=== PATIENT | female | born 1975 | race Caucasian/White ===

== ENCOUNTER 2016-11-05 08:26 | Emergency (ER) | payer SELFPAY ==
[2016-11-05] MEDS ORDERED: ONDANSETRON HCL 4 MG/2 ML VIAL ONE ×2 (09:01→09:33)
[2016-11-05 09:16] LABS: BASOPHILS 0.1 % (0.0-2.0); EOSINOPHILS 0.2 % (0.0-6.0); HEMATOCRIT 46.4 % (36.0-48.0); HEMOGLOBIN 15.9 g/dL (12.0-16.0); LYMPHOCYTES 4.4 % (20.0-40.0); LYMPHOCYTES# 0.5 X 10^3uL (0.8-3.8); MEAN CELL VOLUME 88.6 fL (80.0-100.0); MEAN CORPUS. HGB CONCENTRATION 34.2 g/dL (32.0-36.0); MEAN CORPUSCULAR HEMOGLOBIN 30.3 pg (29.0-35.0); MEAN PLATELET VOLUME 8.4 fL (7.4-10.4); MONOCYTES 3.5 % (2.0-10.0); MONOCYTES# 0.4 X 10^3uL (0.2-1.0); NEUTROPHILS# 10.5 X 10^3uL (2.6-6.7); PLATELET COUNT 229 X 10^3uL (130-440); RED BLOOD COUNT 5.24 X 10^6uL (4.20-6.10); RED CELL DISTRIBUTION WIDTH 11.9 % (11.5-14.5); WHITE BLOOD COUNT 11.4 X 10^3uL (3.9-10.7)
[2016-11-05 09:25] LABS: NEUTROPHILS 91.8 % (54.0-75.0)
[2016-11-05 09:26] LABS: ALBUMIN 4.7 g/dL (3.5-5.0); ALKALINE PHOSPHATASE 68 U/L (38-126); ALT 39 U/L (9-52); AST 22 U/L (14-36); BILIRUBIN, DIRECT 0.1 mg/dL (0.0-0.4); BILIRUBIN, TOTAL 0.9 mg/dL (0.2-1.3); BLOOD UREA NITROGEN 21 mg/dL (7-17); CALCIUM 9.1 mg/dL (8.4-10.2); CHLORIDE 104 mmol/L (98-107); CREATININE 0.7 mg/dL (0.5-1.0); EST GLOMERULAR FILTRATION RATE > 60 mL/min; GLUCOSE 108 mg/dL (70-100); LIPASE 125 U/L (23-300); POTASSIUM 4.1 mmol/L (3.5-5.1); SODIUM 140 mmol/L (137-145); TOTAL PROTEIN 8.3 g/dL (6.3-8.2)
[2016-11-05] MEDS ORDERED: KETOROLAC TROMETHAMINE 30 MG/ML VIAL ONE (09:33)
[2016-11-05] MEDS ORDERED: CIPROFLOXACIN/D5W 400 MG IV ONE (11:21)
[2016-11-05] MEDS ORDERED: NORMAL SALINE 250 ML IV ONE (11:21)
[2016-11-05] MEDS ORDERED: DIPHENHYDRAMINE 50 MG/ML VIAL ONE (11:22)
--- NOTE | 2016-11-05 13:35 | ER PHYSICIAN DOCUMENTATION ---
Physician Documentation [facility] Name:Marquita Wilhelm Age:41 yrs Sex:Female :1975 Arrival Date:11/05/2016 Time:08:26 Bed4 Private MD: Cortez Goldstein Disposition: 11/05/16 11:05 Discharged to Home/Self Care. Impression: Pyelonephritis. - Condition is Fair. - Discharge Instructions: PYELONEPHRITIS, Female (Adult). - Prescriptions for Cipro 500 mg Oral Tablet - take 1 tablet by ORAL route every 12 hours for 7 days; 14 tablet. Zofran 4 mg Oral Tablet - take 1 tablet by ORAL route every 12 hours .; 20 tablet. - Medical Reconciliation form form. - Follow up: Emergency Department; When: As needed; Reason: Worsening of condition. - Problem is new. - Symptoms have improved. HPI: 11/05 11:01 This 41 yrs old Female presents to ER via Private Vehicle with complaints of sc Nausea/Vomiting. 11:01 The patient presents to the emergency department with nausea, with vomiting. Onset: The sc symptom(s)/episode began/occurred yesterday. Possible causes: unknown. Associated signs and symptoms: Pertinent positives: anorexia, nausea, vomiting. The patient has not experienced similar symptoms in the past. Historical: - Allergies: Codeine; IODINEIODINE CONTAINING; - Home Meds: 1. None - PMHx: NONE; - PSHx: HYSTERECTOMY; CHOLECYSECTOMY; APPENDECTOMY; ; ovarian cyst rupture repair; - Tetanus: < 10 years. - Ebola Screening: : Patient negative for fever greater than or equal to 101.5 degrees Fahrenheit, and additional compatible Ebola Virus Disease symptoms. Patient denies exposure to infectious person. Patient denies travel to an Ebola-affected area in the 21 days before illness onset. No symptoms or risks identified at this time. . - Immunization history: Flu Vaccine >1 year. - Social history: Smoking status: Patient states was never smoker of tobacco. ROS: 11:01 Constitutional: Negative for fever, chills, and weight loss. sc Eyes: Negative for injury, pain, redness, and discharge. ENT: Negative for injury, pain, and discharge. Neck: Negative for injury, pain, and swelling. Cardiovascular: Negative for chest pain, palpitations, and edema. Respiratory: Negative for shortness of breath, cough, wheezing, and pleuritic chest pain. 11:01 Skin: Negative for injury, rash, and discoloration. sc 11:01 Abdomen/GI: Positive for nausea, vomiting, abdominal cramps, Negative for diarrhea, constipation, dysphagia, hematemesis. 11:01 Neuro: Positive for headache. Exam: Constitutional: This is a well developed, well nourished patient who is awake, alert, and in no acute distress. Head/Face: Normocephalic, atraumatic. Eyes: Pupils equal round and reactive to light, extra-ocular motions intact. Lids and lashes normal. Conjunctiva and sclera are non-icteric and not injected. Cornea within normal limits. Periorbital areas with no swelling, redness, or edema. Neck: Trachea midline, no thyromegaly or masses palpated, and no cervical lymphadenopathy. Supple, full range of motion without nuchal rigidity, or vertebral point tenderness. No meningismus. Cardiovascular: Regular rate and rhythm with a normal S1 and S2. No gallops, murmurs, or rubs. Normal PMI, no JVD. No pulse deficits. Respiratory: Lungs have equal breath sounds bilaterally, clear to auscultation and percussion. No rales, rhonchi or wheezes noted. No increased work of breathing, no retractions or nasal flaring. Abdomen/GI: Soft, non-tender, with normal bowel sounds. No distension or tympany. No guarding or rebound. No evidence of tenderness throughout. MS/ Extremity: Pulses equal, no cyanosis. Neurovascular intact. Full, normal range of motion, negative Homans's, calves equal bilaterally. 11:02 Neuro: Awake and alert, GCS 15, oriented to person, place, time, and situation. sc Cranial nerves II-XII grossly intact. Motor strength 5/5 in all extremities. Sensory grossly intact. Cerebellar exam normal. Normal gait. 11:02 Constitutional: The patient appears alert, awake, comfortable. 11:02 ENT: Mouth: Oral mucosa: dry. 11:02 Cardiovascular: Rate: normal, Rhythm: regular. 11:02 Abdomen/GI: Inspection: abdomen appears normal. 11:02 Skin: Turgor: is poor, tenting is noted. Vital Signs: 08:35 BP 131 / 73; Pulse 100; Resp 16; Temp 98.3; Pulse Ox 92% ; Weight 63.5 kg; Height 5 ft. jt 6 in. (167.64 cm); Pain 6/10; 11:04 BP 105 / 79 (auto/); tg 11:30 BP 117 / 67 (auto/); Pulse 89; Resp 14; Pulse Ox 97% on R/A; tg 13:33 BP 109 / 62; Pulse 90; Resp 16; Pulse Ox 93% on R/A; tg 08:35 Body Mass Index 22.60 (63.50 kg, 167.64 cm) jt MDM: 09:03 Patient medically screened. vt 11:03 Differential diagnosis: viral gastroenteritis, gastroenteritis, Pyelonephritis. Data vt reviewed: vital signs, nurses notes, lab test result(s), and as a result, I will continue to observe the patient, administer antibiotics administer IV fluids. Counseling: I had a detailed discussion with the patient and/or guardian regarding: the historical points, exam findings, and any diagnostic results supporting the discharge/admit diagnosis, lab results, the need for outpatient follow up, for a recheck. Medication response: The patient's symptoms have improved. 11/05 09:26 Order name: CBC AUTO DIF, MDIF/RMOR IF IND; Complete Time: 10:04 [facility] 11/05 10:04 Interpretation: Normal Except: WHITE BLOOD COUNT 11.4; NEUTROPHILS 91.8. vt 11/05 09:27 Order name: BASIC METABOLIC PANEL; Complete Time: 10:04 [facility] 11/05 10:04 Interpretation: Normal. vt 11/05 09:27 Order name: HEPATIC PANEL; Complete Time: 10:04 [facility] 11/05 10:04 Interpretation: Normal. vt 11/05 09:27 Order name: LIPASE; Complete Time: 10:04 [facility] 11/05 10:04 Interpretation: Normal. vt 11/06 09:15 Order name: URINE CULTURE [facility] 11/07 11:17 Order name: NEGATIVE SENSITIVITY PANEL [facility] 11/05 09:05 Order name: Urine Dip; Complete Time: 10:17 vt Dispensed Medications: 08:50 Drug: NS 0.9% 1000 ml; Route: IV; Rate: bolus; Site: left antecubital; tg 09:33 Follow up: IV Status: Completed infusion; IV Intake: 1000ml tg 08:58 Drug: Zofran 4 mg; Route: IVP; Infused Over: 2 mins; Site: left antecubital; tg 09:34 Follow up: Response: No adverse reaction; No change in condition tg 09:33 Drug: Zofran 4 mg; Route: IVP; Infused Over: 2 mins; Site: left antecubital; tg 09:55 Follow up: Response: Nausea is decreased tg 09:34 Drug: NS 0.9% 1000 ml; Route: IV; Rate: bolus; Site: left antecubital; tg 10:16 Follow up: IV Status: Completed infusion; IV Intake: 1000ml tg 09:34 Drug: Toradol 30 mg; Route: IVP; Site: left antecubital; tg 09:55 Follow up: Response: Pain is decreased tg 11:00 Drug: Benadryl 25 mg; Route: IVP; Site: left antecubital; tg 12:02 Follow up: Response: No adverse reaction; Nausea is decreased tg 11:06 Drug: NS 0.9% 1000 ml; Route: IV; Rate: bolus; Site: left antecubital; Delivery: tg [place] Tubing; 13:33 Follow up: Response: No adverse reaction; IV Status: Completed infusion; IV Intake: tg 1000ml 11:25 Drug: NS 0.9% 250 ml, Compazine 10 mg; Route: IVPB; Rate: 750 ml/hr; Infused Over: 20 tg mins; Site: left antecubital; Delivery: Pump; 12:01 Follow up: IV Status: Completed infusion; IV Intake: 250ml tg 12:02 Drug: NS 0.9% 200 ml, Cipro 400 mg; Route: IVPB; Site: left antecubital; Delivery: Pump;tg 13:33 Follow up: IV Status: Completed infusion; IV Intake: 200ml tg Point of Care Testing: Urine Dip: 10:17 pH: 6; ; Specific [place]: 1.025; Ketones: Moderate; Glucose: Negative; Protein: Trace; tg Leukocytes: Negative; Nitrite: Positive (+) ; Blood: Non Hemolyzed Trace; Bilirubin: Negative ; Urobilinogen: Normal Signatures: Hugo Street RN RN tg Cortez Brooks MD MD vt
--- NOTE | 2016-11-05 13:35 | ER NURSING DOCUMENTATION ---
Nurse's Notes [facility] Name:Marquita Wilhelm Age:41 yrs Sex:Female :1975 Arrival Date:11/05/2016 Time:08:26 Bed4 Private MD: Diagnosis:Pyelonephritis Presentation: 11/05 08:28 Acuity: ART 3 tg 08:42 Notified ED Physician of patient's arrival and CC Dr. Brooks notified. tg 08:49 Presenting complaint: Patient states: N/V with ABD cramping. vomit 10x since last tg night. No diarrhea. Transition of care: patient was not received from another setting of care. 08:49 Method Of Arrival: Private Vehicle tg 09:15 Care prior to arrival: Medication(s) given: pepto. tg Triage Assessment: 09:13 General: Appears uncomfortable, Behavior is cooperative, pleasant. Pain: Complains of tg pain in headache, ABD cramping. Neuro: Level of Consciousness is awake, alert. Cardiovascular: Capillary refill < 3 seconds. Respiratory: Airway is patent Respiratory effort is even, unlabored. GI: Reports cramping, nausea, vomiting, Denies diarrhea. Derm: Skin is pink, warm & dry. Historical: - Allergies: Codeine; IODINEIODINE CONTAINING; - Home Meds: 1. None - PMHx: NONE; - PSHx: HYSTERECTOMY; CHOLECYSECTOMY; APPENDECTOMY; ; ovarian cyst rupture repair; - Tetanus: < 10 years. - Ebola Screening: : Patient negative for fever greater than or equal to 101.5 degrees Fahrenheit, and additional compatible Ebola Virus Disease symptoms. Patient denies exposure to infectious person. Patient denies travel to an Ebola-affected area in the 21 days before illness onset. No symptoms or risks identified at this time. . - Immunization history: Flu Vaccine >1 year. - Social history: Smoking status: Patient states was never smoker of tobacco. Screenin:53 Infectious Disease Risk Unable to Obtain. Abuse screen: Denies threats or abuse. Denies tg injuries from another. Nutritional screening: No deficits noted. Assessment: 13:32 Reassessment: Patient denies pain at this time. Patient states feeling better. Patient tg states symptoms have improved. Patient appears in no apparent distress at this time. See Triage Assessment done by same RN. Vital Signs: 08:35 BP 131 / 73; Pulse 100; Resp 16; Temp 98.3; Pulse Ox 92% ; Weight 63.5 kg; Height 5 ft. jt 6 in. (167.64 cm); Pain 6/10; 11:04 BP 105 / 79 (auto/); tg 11:30 BP 117 / 67 (auto/); Pulse 89; Resp 14; Pulse Ox 97% on R/A; tg 13:33 BP 109 / 62; Pulse 90; Resp 16; Pulse Ox 93% on R/A; tg 08:35 Body Mass Index 22.60 (63.50 kg, 167.64 cm) jt ED Course: 08:28 Patient arrived in ED. tg 08:29 Triage completed. tg 08:41 Cortez Brooks MD is Attending Physician. sc 08:53 Valuables Remains with patient. tg 09:15 Arm band placed on Bed in low position Call Light in Reach Gowned HOB Elevated Side tg rails up x1. Family accompanied patient. 09:[address] RN is Primary Nurse. tg Administered Medications: 08:50 Drug: NS 0.9% 1000 ml; Route: IV; Rate: bolus; Site: left antecubital; tg 09:33 Follow up: IV Status: Completed infusion; IV Intake: 1000ml tg 08:58 Drug: Zofran 4 mg; Route: IVP; Infused Over: 2 mins; Site: left antecubital; tg 09:34 Follow up: Response: No adverse reaction; No change in condition tg 09:33 Drug: Zofran 4 mg; Route: IVP; Infused Over: 2 mins; Site: left antecubital; tg 09:55 Follow up: Response: Nausea is decreased tg 09:34 Drug: NS 0.9% 1000 ml; Route: IV; Rate: bolus; Site: left antecubital; tg 10:16 Follow up: IV Status: Completed infusion; IV Intake: 1000ml tg 09:34 Drug: Toradol 30 mg; Route: IVP; Site: left antecubital; tg 09:55 Follow up: Response: Pain is decreased tg 11:00 Drug: Benadryl 25 mg; Route: IVP; Site: left antecubital; tg 12:02 Follow up: Response: No adverse reaction; Nausea is decreased tg 11:06 Drug: NS 0.9% 1000 ml; Route: IV; Rate: bolus; Site: left antecubital; Delivery: tg [place] Tubing; 13:33 Follow up: Response: No adverse reaction; IV Status: Completed infusion; IV Intake: tg 1000ml 11:25 Drug: NS 0.9% 250 ml, Compazine 10 mg; Route: IVPB; Rate: 750 ml/hr; Infused Over: 20 tg mins; Site: left antecubital; Delivery: Pump; 12:01 Follow up: IV Status: Completed infusion; IV Intake: 250ml tg 12:02 Drug: NS 0.9% 200 ml, Cipro 400 mg; Route: IVPB; Site: left antecubital; Delivery: Pump;tg 13:33 Follow up: IV Status: Completed infusion; IV Intake: 200ml tg Point of Care Testing: Urine Dip: 10:17 pH: 6; ; Specific [place]: 1.025; Ketones: Moderate; Glucose: Negative; Protein: Trace; tg Leukocytes: Negative; Nitrite: Positive (+) ; Blood: Non Hemolyzed Trace; Bilirubin: Negative ; Urobilinogen: Normal Intake: 09:33 IV: 1000ml; Total: 1000ml. tg 10:16 IV: 1000ml; Total: 2000ml. tg 12:01 IV: 250ml; Total: 2250ml. tg 13:33 IV: 1000ml; Total: 3250ml. tg 13:33 IV: 200ml; Total: 3450ml. Outcome: 11:05 Discharge ordered by . mo 13:32 Discharged to home ambulatory, with family. 13:32 Condition: stable 13:32 Discharge Assessment: Patient awake, alert and oriented x 3. No cognitive and/or functional deficits noted. Patient verbalized understanding of disposition instructions. 13:32 Instructed on discharge instructions, follow up and referral plans. medication usage, Prescriptions given X 2. 13:32 IV D/Dru 13:34 Patient left the ED. 11/06 14:07 Discharge F/U Call: Spoke with: patient. Are you having any pain? no. Have you filled lc your prescriptions? yes. Did your discharge instructions answer all of your questions? yes Overall Care on a scale of 1-10 with 10 being the best care, you rate our care as: Other comments: FEELING BETTER, NO FEVER AND NAUSEA IMPROVED Signatures: Hugo Street RN RN Sabine Perkins RN RN lc Chew, Scott, MD MD [facility], Linda jt
== END 2016-11-05 13:35 | disposition home or self-care (01) ==
LOC: ER 08:26
DX: N12 Tubulo-interstitial nephritis, not specified as acute or chronic (principal); B96.20 Unspecified Escherichia coli [E. coli] as the cause of diseases classified elsewhere; R11.2 Nausea with vomiting, unspecified; E86.0 Dehydration; R51 Headache
CPT/HCPCS: 80048; 80076; 83690; 85025; 87077; 87086; 87186; 96361; 96365; 96367; 96375; 96376; 99283; J0744; J1200; J1885; J2405; J7050